=== PATIENT | male | born 1985 | race Hispanic/Latino ===

== ENCOUNTER 2018-12-20 14:51 | Emergency (ER) | payer OTHER ==
[2018-12-20] MEDS ORDERED: ACETAMINOPHEN EXTRA STRENGTH 500 MG TABLET ONE (15:13)
[2018-12-20] MEDS ORDERED: ONDANSETRON ODT 4 MG TAB ONE (15:14)
[2018-12-20 15:34] LABS: RAPID GROUP A STREP NEGATIVE (NEGATIVE)
[2018-12-20] MEDS ORDERED: DEXAMETHASONE SOD PHOSPHATE 10MG/ML 1ML VIAL ONE (15:54)
[2018-12-20] MEDS ORDERED: LIDOCAINE HCL-MPF 1% 2ML VIAL ONE (15:55)
[2018-12-20] MEDS ORDERED: CEFTRIAXONE SODIUM 1 GM ONE (15:55)
== END 2018-12-20 16:23 | disposition home or self-care (01) ==
LOC: EDH 14:51
DX: J02.9 Acute pharyngitis, unspecified (principal); R50.81 Fever presenting with conditions classified elsewhere; Z90.49 Acquired absence of other specified parts of digestive tract; Z72.0 Tobacco use
CPT/HCPCS: 87804 ×2; 87880; 99284; J0696; J1100; J3490

== ENCOUNTER 2020-06-05 06:27 | Emergency (ER) | payer BC, OTHER ==
[2020-06-05] MEDS ORDERED: SODIUM CHLORIDE 0.9% 1000ML 1,000 ML IV ONE (06:55)
[2020-06-05] MEDS ORDERED: KETOROLAC TROMETHAMINE 30MG/ML ONE (06:55)
[2020-06-05] MEDS ORDERED: ONDANSETRON HCL 4 MG/2 ML VIAL ONE (06:55)
[2020-06-05 07:03] LABS: BASOPHILS % (AUTO) 0.3 % (0.0-5.0); EOSINOPHILS % (AUTO) 0.2 % (0.0-8.0); HEMATOCRIT 47.5 % (42-54); LYMPHOCYTES % (AUTO) 14.9 % (21.0-51.0); MEAN CORPUSCULAR HEMOGLOBIN 29.8 pg (27.0-33.0); MEAN CORPUSCULAR HGB CONC 33.5 g/dL (32.0-36.0); MONOCYTES % (AUTO) 7.3 % (3.0-13.0); PLATELET COUNT (AUTO) 236 K/uL (130-400); RED BLOOD CELL COUNT(AUTO) 5.34 MIL/uL (4.50-6.20); RED CELL DISTRIBUTION WIDTH 12.9 % (11.0-15.5); WHITE BLOOD COUNT (AUTO) 11.5 K/uL (4.8-10.8)
[2020-06-05 07:04] LABS: APPEARANCE,URINE CLEAR (CLEAR); BILIRUBIN,URINE NEGATIVE (NEGATIVE); COLOR,URINE YELLOW (YELLOW); GLUCOSE, URINE (UA) NEGATIVE (NEGATIVE); KETONES,URINE NEGATIVE (NEGATIVE); LEUKOCYTE ESTERASE ,URINE NEGATIVE (NEGATIVE); NITRATE,URINE NEGATIVE (NEGATIVE); OCCULT BLOOD,URINE NEGATIVE (NEGATIVE); PH,URINE 7.5 (5.0-8.0); PROTEIN,URINE NEGATIVE (NEGATIVE); UROBILINOGEN,URINE 0.2 mg/dL (0.2-1.0)
[2020-06-05 07:14] LABS: ALBUMIN 4.1 g/dL (3.5-5.0); BILIRUBIN,TOTAL 0.6 mg/dL (0.2-1.0); CREATININE 1.1 mg/dL (0.5-1.5); TOTAL PROTEIN, SERUM 7.7 g/dL (6.0-8.3)
[2020-06-05 07:21] LABS: POTASSIUM 3.4 mmol/L (3.5-5.1)
== END 2020-06-05 08:36 | disposition home or self-care (01) ==
LOC: EDH 06:27
DX: R10.12 Left upper quadrant pain (principal); R10.32 Left lower quadrant pain; I10 Essential (primary) hypertension; Z90.49 Acquired absence of other specified parts of digestive tract; Z72.0 Tobacco use
CPT/HCPCS: 36415; 74176; 80053; 81003; 83690; 85025; 96361; 96374; 96375; 99284; J1885; J2405; J7030

== ENCOUNTER 2022-03-23 13:34 | Emergency (ER) | payer BC ==
[~2022-03-23] VITALS: Ht 180.3 cm; Wt 121.6 kg
[2022-03-23] MEDS ORDERED: [UNRECOGNIZED DRUG - OTHER] TP (15:33)
[2022-03-23] MEDS ORDERED: FAMC500T8 PO (15:33)
[2022-03-23] MEDS ORDERED: IBUP-2070 PO (15:33)
[2022-03-23 15:38] VITALS: BP 169/106
== END 2022-03-23 15:45 | disposition home or self-care (01) ==
LOC: EDH 13:34
DX: B02.9 Zoster without complications (principal)